=== PATIENT | male | born 1975 | race Caucasian/White ===

== ENCOUNTER 2017-11-30 08:06 | Day surgery (SDC) | payer BC ==
[~2017-11-30 08:06] MED LIST: Midazolam 1 MG/ML 2 ML SDV ONE; fentaNYL 100 MCG/2 ML SDV ONE
[2017-11-30] MEDS ORDERED: fentaNYL 100 MCG/2 ML SDV IV ONE ×4 (08:07→08:54)
[2017-11-30] MEDS ORDERED: Midazolam 1 MG/ML 2 ML SDV IV ONE ×8 (08:07→08:56)
[2017-11-30] MEDS ORDERED: Dextrose 5%-0.45% NaCl 1,000 ML IV SCH (08:30)
[2017-11-30] MEDS ORDERED: Midazolam 1 MG/ML 2 ML SDV ONE (09:12)
--- NOTE | 2017-11-30 13:31 | OR ---
DATE: 11/30/2017 INDICATION FOR PROCEDURE: This 42-year-old male was referred by Krystle Pugh PA-C, for evaluation of anemia. PREOPERATIVE DIAGNOSIS: Anemia. POSTOPERATIVE DIAGNOSIS: Anemia. PROCEDURE: Total colonoscopy. ANESTHESIA: Conscious sedation with IV Versed and fentanyl. SPECIMEN: None. OPERATIVE FINDINGS: Normal colonoscopy. RECOMMENDATION: Followup colonoscopy for polyp surveillance in 10 years. PROCEDURE IN DETAIL: After adequate preparation, a colonoscope was inserted into the rectum. This was easily passed all the way to the cecum. Confirmation of the cecum was made by visualization of the ileocecal valve and palpation in the right lower quadrant. The bowel prep was good. On withdrawal of the scope, no abnormalities were noted. There was no polyp, gross evidence of colitis, or diverticula. Air was suctioned from the colon, and the scope was removed. [facility] /[id number]
== END 2017-11-30 11:12 | disposition home or self-care (01) ==
LOC: DL.ENDO 08:06
PROVIDERS: ATTEND Surgery
DX: D64.9 Anemia, unspecified (principal); E11.9 Type 2 diabetes mellitus without complications; I10 Essential (primary) hypertension; Z79.84 Long term (current) use of oral hypoglycemic drugs; Z79.899 Other long term (current) drug therapy
CPT/HCPCS: 45378; J2250; J3010; J7042